=== PATIENT | male | born 1945 ===

== ENCOUNTER 2019-03-06 09:34 | Emergency (ER) | payer MEDICARE, BC ==
[2019-03-06] MEDS ORDERED: Acetaminophen/HYDROcodone 325-10 MG Tab PO ONE (09:35)
[2019-03-06] MEDS ORDERED: Acetaminophen/HYDROcodone 325-10 MG Tab ONE (10:23)
--- NOTE | 2019-03-06 10:23 | EDM.PDOC ---
Scribed by Keisha Tubbs 03/06/19 0940 for Rory Valente MD ED HPI GENERAL MEDICAL PROBLEM - General Chief Complaint: Lower Extremity Injury/Pain Stated Complaint: INJURED FOOT Time Seen by Provider: 03/06/19 09:47 Source of Information: Reports: Patient, RN, RN Notes Reviewed History Limitations: Reports: No Limitations - History of Present Illness INITIAL COMMENTS - FREE TEXT/NARRATIVE: Patient presents to ER by POV with right foot pain, mainly at the right heel. He was pushing a boat yesterday when he heard a snap in his foot. No other injury. Onset Date: 03/05/19 Duration: Getting Worse Location: Reports: Lower Extremity, Right Quality: Reports: Ache Severity: Moderate Improves with: Reports: None Worsens with: Reports: None Associated Symptoms: Reports: No Other Symptoms - Related Data Allergies Allergy/AdvReac Type Severity Reaction Status Date / Time amitriptyline Allergy Other Verified 03/06/19 09:41 Past Medical History Neurological History: Reports: Neuropathy, Peripheral Endocrine/Metabolic History: Reports: Diabetes, Type II Social & Family History - Family History Family Medical History: Noncontributory - Living Situation & Occupation Occupation: Retired Review of Systems - Review of Systems Review Of Systems: ROS reveals no pertinent complaints other than HPI. ED EXAM, GENERAL - Physical Exam Exam: See Below Exam Limited By: No Limitations General Appearance: Alert, WD/WN, No Apparent Distress Head: Atraumatic, Normocephalic Respiratory/Chest: No Respiratory Distress Cardiovascular: Normal Peripheral Pulses Extremities: Normal Range of Motion, No Pedal Edema, Normal Capillary Refill, Other (Tender to palpation at right heel and overlying the Rt plantar fascia with no visible swelling, bruising, or deformity.). No: Joint Swelling, Increased Warmth, Pallor, Redness Neurological: Alert, Oriented, No Motor/Sensory Deficits (with chronic lower extremity peripheral neuropathy to mid-lower legs B/L) Psychiatric: Normal Mood Skin Exam: Warm, Dry, Intact, Normal Color Course - Vital Signs Last Recorded V/S: Last Vital Signs Temp 97.9 F 03/06/19 09:41 Pulse 77 03/06/19 09:41 Resp 18 03/06/19 09:41 BP 135/78 03/06/19 09:41 Pulse Ox 94 L 03/06/19 09:41 - Orders/Labs/Meds Orders: Active Orders 24 hr Category Date Time Status Calcaneous Rt [CR] Urgent Exams 03/06/19 09:47 Taken Foot Comp Min 3V Rt [CR] Urgent Exams 03/06/19 09:47 Taken DME for Discharge [COMM] Routine Oth 03/06/19 10:22 Ordered - Radiology Interpretation Free Text/Narrative:: XR Right foot/calcaneus: no acute fractures, see Rad. report. Departure - Departure Time of Disposition: 10:23 Disposition: Home, Self-Care 01 Condition: Good Clinical Impression: Traumatic plantar fasciitis - Discharge Information *PRESCRIPTION DRUG MONITORING PROGRAM REVIEWED*: No *COPY OF PRESCRIPTION DRUG MONITORING REPORT IN PATIENT AVELINO: No Instructions: RICE Therapy for Routine Care of Injuries, [id number], Plantar Fasciitis Forms: ED Department Discharge Additional Instructions: Rest, ice pack, and elevate right foot as needed for pain or inflammation. Use over the counter Acetaminophen (Tylenol) and/or Ibuprofen (Advil/Motrin) as needed for pain. Follow direction on bottle/package for dosing and precautions. Follow up with your primary doctor or cold working inspector this week for recheck and further treatment if needed. - My Orders Last 24 Hours: My Active Orders 03/06/19 09:47 Calcaneous Rt [CR] Urgent Foot Comp Min 3V Rt [CR] Urgent 03/06/19 10:22 DME for Discharge [COMM] Routine - Assessment/Plan Last 24 Hours: My Active Orders 03/06/19 09:47 Calcaneous Rt [CR] Urgent Foot Comp Min 3V Rt [CR] Urgent 03/06/19 10:22 DME for Discharge [COMM] Routine I have read and agree with the documentation that has been completed regarding this visit. By signing this record, I attest that the documentation was completed in my physical presence and is an accurate record of the encounter.
== END 2019-03-06 10:32 | disposition home or self-care (01) ==
LOC: DL.ED 09:34
DX: M72.2 Plantar fascial fibromatosis (principal); E11.40 Type 2 diabetes mellitus with diabetic neuropathy, unspecified; Z88.8 Allergy status to other drugs, medicaments and biological substances; X50.9XXA Other and unspecified overexertion or strenuous movements or postures, initial encounter
CPT/HCPCS: 73630-RT; 73650-RT; 99282; 99283-25